=== PATIENT | female | born 1960 | race Caucasian/White ===

== ENCOUNTER 2018-09-27 14:53 | Emergency (ER) | payer OTHER | END 2018-09-27 16:06 | disposition home or self-care (01) | LOC: JERFT 14:53 ==

== ENCOUNTER 2020-06-15 04:43 | Day surgery (SDC) | payer OTHER ==
[2020-06-13 13:54] VITALS: BMI 29.0
[2020-06-15 10:51] VITALS: TEMP 97.1
[2020-06-15 11:52] VITALS: BP 150/92; PULSE 50
[2020-06-16] MEDS ORDERED: FAMOTIDINE 20 MG TABLET PO SCH (10:00)
== END 2020-06-15 11:45 | disposition home or self-care (01) ==
LOC: JASU-ENDO 04:43
PROVIDERS: ATTEND Internal Medicine Gastroenterology
PROC: 0DB78ZX Excision of Stomach, Pylorus, Via Natural or Artificial Opening Endoscopic, Diagnostic (ICD-10-PCS; principal; 2020-06-15 10:30)
DX: K29.50 Unspecified chronic gastritis without bleeding (principal); B96.81 Helicobacter pylori [H. pylori] as the cause of diseases classified elsewhere; Z87.19 Personal history of other diseases of the digestive system
CPT/HCPCS: 88305-TC; 88342-TC

== ENCOUNTER 2020-06-29 04:19 | Day surgery (SDC) | payer OTHER ==
[2020-06-27 16:38] VITALS: BMI 29.9
[2020-06-29 10:45] VITALS: TEMP 98
[2020-06-29 11:29] VITALS: BP 117/63; PULSE 65
== END 2020-06-29 11:21 | disposition home or self-care (01) ==
LOC: JASU-ENDO 04:19
PROVIDERS: ATTEND Internal Medicine Gastroenterology
PROC: 0DBP8ZX Excision of Rectum, Via Natural or Artificial Opening Endoscopic, Diagnostic (ICD-10-PCS; principal; 2020-06-29 10:00)
DX: Z12.11 Encounter for screening for malignant neoplasm of colon (principal); K62.1 Rectal polyp; K57.30 Diverticulosis of large intestine without perforation or abscess without bleeding; K64.8 Other hemorrhoids
CPT/HCPCS: 88305-TC